=== PATIENT | female | born 1965 | race Caucasian/White ===

== ENCOUNTER 2024-02-04 16:37 | Inpatient (IN) | payer BC, OTHER ==
[2024-02-04 17:56] VITALS: BMI 18.0
[2024-02-04] MEDS ORDERED: BISMUTH SUBSALICYLATE 524 MG/30 ML PO PRN (18:51)
[2024-02-04] MEDS ORDERED: IBUPROFEN 400 MG TABLET (FP) PO PRN (18:51)
[2024-02-04] MEDS ORDERED: BENZONATATE 200 MG CAPSULE PO PRN (18:51)
[2024-02-04] MEDS ORDERED: BENZOCAINE/MENTHOL (CHLORASEPTIC ) LOZENGE MM PRN (18:51)
[2024-02-04] MEDS ORDERED: NALOXONE (NARCAN) HCL 4 MG/0.1 ML SPRAY NS PRN (18:51)
[2024-02-04] MEDS ORDERED: POLYETHYLENE GLYCOL (HEALTHYLAX) 3350 17 GM PACKET PO PRN (18:51)
[2024-02-04] MEDS ORDERED: NALOXONE (NYS OPIOID OVERDOSE PROGRAM) 4 MG/0.1 ML SPRAY NS PRN (18:51)
[2024-02-04] MEDS ORDERED: LOPERAMIDE HCL 2 MG CAPSULE PO PRN (18:51)
[2024-02-04] MEDS ORDERED: MAG HYDROX/AL HYDROX/SIMETH 30 ML UNIT-DOSE CUP PO PRN (18:51)
[2024-02-04] MEDS ORDERED: DICYCLOMINE HCL 10 MG CAPSULE PO PRN (18:51)
[2024-02-04] MEDS ORDERED: guaiFENesin 600 MG TABLET.ER (FP) PO PRN (18:51)
[2024-02-04] MEDS: MELATONIN 5 MG TABLETS PO SCH (22:58)
[2024-02-04] MEDS: GABAPENTIN 100 MG CAPSULE PO SCH (22:58)
[2024-02-04] MEDS: SULFAMETHOXAZOLE/TRIMETHOPRIM 800MG/160MG D.S. TABLET PO SCH (22:58)
[2024-02-04] MEDS: BUDESONIDE/FORMETEROL FUMARATE 80/4.5 mcg INHALER IH SCH (23:00)
[2024-02-04] MEDS: THIAMINE 100 MG TABLET PO SCH (23:01)
[2024-02-04] MEDS: METHOCARBAMOL 500 MG TABLET PO PRN (23:02)
[2024-02-04] MEDS: diazePAM 5 MG TABLET PO SCH (23:03)
[2024-02-04] MEDS: IBUPROFEN 600 MG TABLET (FP) PO PRN (23:03)
[2024-02-05] MEDS: PRENATAL VITAMINS W/ FOLIC ACID TABLET (FP) PO SCH (10:27)
[2024-02-05] MEDS: NICOTINE 14 MG/24 HOURS TOPICAL PATCH TD SCH (10:37)
[2024-02-05] MEDS ORDERED: methaDONE HCL 10 MG TABLET PO SCH (11:00)
[2024-02-05 11:25] LABS: HEMATOCRIT 26.9 % (32.4-45.2); HEMOGLOBIN 8.4 GM/dL (10.7-15.3); MCH 24.9 pg (25.7-33.7); MCHC 31.3 g/dl (32.0-36.0); MEAN CELL VOLUME 79.5 fl (80-96); MEAN PLT VOLUME 9.9 fl (7.5-11.1); PLATELET COUNT 215 10^3/uL (134-434); RBC 3.38 M/mm3 (3.60-5.2); RDW 15.8 % (11.6-15.6); WHITE BLOOD COUNT 4.6 K/mm3 (4.0-10.0)
[2024-02-05 11:29] LABS: CHLORIDE 104 mmol/L (98-107); POTASSIUM 4.1 mmol/L (3.5-5.1); SODIUM 140 mmol/L (136-145)
[2024-02-05 11:42] LABS: ALBUMIN 2.7 g/dl (3.4-5.0); CALCIUM 9.1 mg/dL (8.5-10.1)
[2024-02-05 11:43] LABS: ANION GAP 5 mmol/L (4-13); BLOOD UREA NITROGEN 12.6 mg/dL (7-18); CO2 31 mmol/L (21-32); GLUCOSE,RANDOM 95 mg/dL (74-106)
[2024-02-05 11:46] LABS: CREATININE 0.7 mg/dL (0.55-1.3); SGOT/AST 83 U/L (15-37)
[2024-02-05 11:47] LABS: TOT PROT 6.8 g/dl (6.4-8.2)
[2024-02-05 11:51] LABS: SGPT/ALT 57 U/L (13-61)
[2024-02-05 11:53] LABS: BILIRUBIN,TOTAL 0.2 mg/dL (0.2-1)
[2024-02-05 11:54] LABS: ALK PHOS 104 U/L (45-117)
[2024-02-05] MEDS: NICOTINE POLACRILEX 2 MG GUM BUC PRN (23:18)
[2024-02-06] MEDS: diazePAM 5 MG TABLET PO SCH (05:46)
[2024-02-06] MEDS: hydrOXYzine PAMOATE 25 MG CAPSULE (FP) PO PRN (10:59)
[2024-02-06] MEDS: PATIENT'S OWN MEDICATION (NON-FORMULARY) (Linaclotide 145 MCG Capsule) PO SCH (11:17)
[2024-02-06 12:20] LABS: BASO % 0.8 % (0-2.0); EOS % 8.3 % (0-4.5); HEMATOCRIT 31.8 % (32.4-45.2); HEMOGLOBIN 9.8 GM/dL (10.7-15.3); LYMPH % 25.7 % (8-40); MCH 24.2 pg (25.7-33.7); MCHC 30.9 g/dl (32.0-36.0); MEAN CELL VOLUME 78.4 fl (80-96); MEAN PLT VOLUME 10.2 fl (7.5-11.1); MONO % 7.7 % (3.8-10.2); NEUT % 57.5 % (42.8-82.8); PLATELET COUNT 278 10^3/uL (134-434); RBC 4.06 M/mm3 (3.60-5.2); RDW 16.2 % (11.6-15.6); WHITE BLOOD COUNT 5.1 K/mm3 (4.0-10.0)
[2024-02-06 12:29] LABS: POTASSIUM 4.5 mmol/L (3.5-5.1)
[2024-02-06 12:32] LABS: ALBUMIN 2.9 g/dl (3.4-5.0); BLOOD UREA NITROGEN 11.8 mg/dL (7-18); CALCIUM 9.2 mg/dL (8.5-10.1)
[2024-02-06 12:35] LABS: CREATININE 0.8 mg/dL (0.55-1.3)
[2024-02-06 12:37] LABS: BILIRUBIN,TOTAL 0.3 mg/dL (0.2-1); TOT PROT 7.7 g/dl (6.4-8.2)
[2024-02-06] MEDS: SENNOSIDES 8.8 MG/5 ML SYRUP PO SCH (13:30)
[2024-02-06] MEDS: GABAPENTIN 300 MG CAPSULE PO SCH (13:31)
[2024-02-06] MEDS: DOCUSATE SODIUM 100 MG CAPSULE (FP) PO SCH (22:33)
[2024-02-07] MEDS: diazePAM 5 MG TABLET PO SCH (06:15)
[2024-02-07] MEDS: hydrOXYzine PAMOATE 50 MG CAPSULE (FP) PO PRN (09:14)
[2024-02-07] MEDS: diazePAM 5 MG TABLET PO PRN (13:17)
[2024-02-08] MEDS: diazePAM 5 MG TABLET PO ONE (06:20)
[2024-02-08] MEDS: MAGNESIUM HYDROX 2400MG/30ML ORAL SUSPENSION 30 ML CUP PO PRN (21:42)
[2024-02-09] MEDS: ONDANSETRON *ODT* 4 MG TABLET SL PRN (03:54)
[2024-02-09] MEDS: ACETAMINOPHEN 325 MG TABLET (FP) PO PRN (09:26)
[2024-02-09] MEDS: SUVOREXANT 10 MG TABLET PO PRN (22:02)
[2024-02-10 06:06] VITALS: RESP 16
[2024-02-11 09:00] VITALS: BP 135/72; PULSE 83; TEMP 98.2
[2024-02-11] MEDS: methaDONE HCL 10 MG TABLET PO ONE (09:44)
[2024-02-11] MEDS ORDERED: METHOCARBAMOL 500 MG TABLET PO PRN (10:43)
== END 2024-02-11 12:11 | disposition other institution (70) | DRG 773 ==
LOC: YASAS 16:37 → Y3N 19:37
PROVIDERS: ADMIT Allergy & Immunology; ATTEND Surgery
PROC: HZ2ZZZZ Detoxification Services for Substance Abuse Treatment (ICD-10-PCS; principal; 2024-02-04)
DX: F10.230 Alcohol dependence with withdrawal, uncomplicated (principal); F11.20 Opioid dependence, uncomplicated; F13.20 Sedative, hypnotic or anxiolytic dependence, uncomplicated; F14.20 Cocaine dependence, uncomplicated; F17.210 Nicotine dependence, cigarettes, uncomplicated; F19.282 Other psychoactive substance dependence with psychoactive substance-induced sleep disorder; F19.24 Other psychoactive substance dependence with psychoactive substance-induced mood disorder; F41.9 Anxiety disorder, unspecified; I10 Essential (primary) hypertension; J44.9 Chronic obstructive pulmonary disease, unspecified; Z22.322 Carrier or suspected carrier of Methicillin resistant Staphylococcus aureus; Z62.810 Personal history of physical and sexual abuse in childhood; Z91.410 Personal history of adult physical and sexual abuse; Z59.01 Sheltered homelessness
CPT/HCPCS: 36415; 80053; 80305; 80307; 81025; 85025; 85027; 86780; 87070; 87186; 87205; 87811; 93005; 93010; Q0162

== ENCOUNTER 2024-02-11 12:39 | Inpatient (IN) | payer OTHER ==
[2024-02-11] MEDS ORDERED: guaiFENesin 600 MG TABLET.ER (FP) PO PRN (13:30)
[2024-02-11] MEDS ORDERED: BENZONATATE 200 MG CAPSULE PO PRN (13:30)
[2024-02-11] MEDS ORDERED: POLYETHYLENE GLYCOL (HEALTHYLAX) 3350 17 GM PACKET PO PRN (13:30)
[2024-02-11] MEDS ORDERED: BENZOCAINE/MENTHOL (CHLORASEPTIC ) LOZENGE MM PRN (13:30)
[2024-02-11] MEDS ORDERED: LOPERAMIDE HCL 2 MG CAPSULE PO PRN (13:30)
[2024-02-11] MEDS: hydrOXYzine PAMOATE 25 MG CAPSULE (FP) PO PRN (14:00)
[2024-02-11] MEDS: METHOCARBAMOL 500 MG TABLET PO PRN (14:00)
[2024-02-11] MEDS: GABAPENTIN 300 MG CAPSULE PO ONE (15:19)
[2024-02-11] MEDS: GABAPENTIN 300 MG CAPSULE PO SCH (21:22)
[2024-02-11] MEDS: THIAMINE 100 MG TABLET PO SCH (21:22)
[2024-02-11] MEDS: MELATONIN 5 MG TABLETS PO SCH (21:22)
[2024-02-11] MEDS: cloNIDine HCL 0.1 MG TABLET PO SCH (21:22)
[2024-02-11] MEDS: SULFAMETHOXAZOLE/TRIMETHOPRIM 800MG/160MG D.S. TABLET PO SCH (21:22)
[2024-02-11] MEDS: IBUPROFEN 600 MG TABLET (FP) PO PRN (22:26)
[2024-02-11] MEDS: SUVOREXANT 10 MG TABLET PO ONE (22:26)
[2024-02-11] MEDS: NICOTINE POLACRILEX 4 MG GUM BUC PRN (22:27)
[2024-02-12] MEDS: NICOTINE 14 MG/24 HOURS TOPICAL PATCH TD SCH (05:30)
[2024-02-12] MEDS: PRENATAL VITAMINS W/ FOLIC ACID TABLET (FP) PO SCH (05:30)
[2024-02-12] MEDS ORDERED: methaDONE HCL 10 MG TABLET PO SCH (06:00)
[2024-02-12] MEDS: ACETAMINOPHEN 325 MG TABLET (FP) PO PRN (13:26)
[2024-02-12 13:29] LABS: HIV INTERPRETATION NEGATIVE (NEGATIVE)
[2024-02-12] MEDS ORDERED: ONDANSETRON 4 MG/2 ML VIAL IVPUSH PRN (13:33)
[2024-02-12] MEDS: MINERAL OIL ENEMA 133 ML ENEMA RC ONE (18:10)
[2024-02-12] MEDS: hydrOXYzine PAMOATE 25 MG CAPSULE (FP) PO PRN (18:13)
[2024-02-12] MEDS: SUVOREXANT 10 MG TABLET PO PRN (21:15)
[2024-02-13] MEDS ORDERED: methaDONE HCL 40 MG DISPERSABLE TABLET PO SCH (11:22)
[2024-02-13] MEDS: methaDONE HCL 10 MG TABLET PO ONE (12:07)
[2024-02-13] MEDS: MAGNESIUM HYDROX 2400MG/30ML ORAL SUSPENSION 30 ML CUP PO PRN (21:47)
[2024-02-14] MEDS: BACITRACIN 0.9 GM PACKET TP SCH (10:42)
[2024-02-14] MEDS: NYSTATIN POWDER 100,000 UNITS/GM - 15 GM TOPICAL POWDER TP SCH (15:48)
[2024-02-14] MEDS: MUPIROCIN CA 2% TOPICAL CREAM 15 GM TUBE TP SCH (21:35)
[2024-02-14] MEDS: IBUPROFEN 400 MG TABLET (FP) PO PRN (21:39)
[2024-02-15] MEDS: MAG HYDROX/AL HYDROX/SIMETH 30 ML UNIT-DOSE CUP PO PRN (17:28)
[2024-02-15] MEDS: hydrOXYzine PAMOATE 25 MG CAPSULE (FP) PO PRN (21:12)
[2024-02-16] MEDS: SUVOREXANT 10 MG TABLET PO PRN (21:48)
[2024-02-18] MEDS: FLUCONAZOLE 150 MG TABLET PO ONE (19:59)
[2024-02-18] MEDS: BACLOFEN 10 MG TABLET (FP) PO SCH (21:14)
[2024-02-18] MEDS: LIDOCAINE PATCH REMOVAL MC SCH (21:15)
[2024-02-19] MEDS: LIDOCAINE 5% TOPICAL PATCH TP SCH (10:46)
[2024-02-19 13:16] LABS: BASO % 1.6 % (0-2.0); EOS % 10.2 % (0-4.5); HEMATOCRIT 32.5 % (32.4-45.2); HEMOGLOBIN 10.2 GM/dL (10.7-15.3); LYMPH % 18.5 % (8-40); MCH 25.4 pg (25.7-33.7); MCHC 31.3 g/dl (32.0-36.0); MEAN CELL VOLUME 81.3 fl (80-96); MEAN PLT VOLUME 10.1 fl (7.5-11.1); MONO % 7.2 % (3.8-10.2); NEUT % 62.5 % (42.8-82.8); PLATELET COUNT 246 10^3/uL (134-434); RDW 19.3 % (11.6-15.6); WHITE BLOOD COUNT 4.6 K/mm3 (4.0-10.0)
[2024-02-19 13:20] LABS: INR 0.91 (0.83-1.09); PROTHROMBIN TIME (PATIENT) 10.3 SEC (9.7-13.0)
[2024-02-19 14:10] LABS: POTASSIUM 4.6 mmol/L (3.5-5.1)
[2024-02-19 14:14] LABS: CALCIUM 9.8 mg/dL (8.5-10.1)
[2024-02-19 14:15] LABS: BLOOD UREA NITROGEN 20.8 mg/dL (7-18); MAGNESIUM 2.2 mg/dL (1.8-2.4)
[2024-02-19 14:19] LABS: BILIRUBIN,TOTAL 0.3 mg/dL (0.2-1); TOT PROT 8.8 g/dl (6.4-8.2)
[2024-02-19 14:24] LABS: ALBUMIN 3.5 g/dl (3.4-5.0)
[2024-02-21] MEDS: ONDANSETRON *ODT* 4 MG TABLET SL PRN (09:06)
[2024-02-23] MEDS: SUVOREXANT 10 MG TABLET PO PRN (21:42)
[2024-02-24] MEDS: GABAPENTIN 400 MG CAPSULE PO SCH (13:42)
[2024-02-24] MEDS: BACLOFEN 10 MG TABLET (FP) PO SCH (21:42)
[2024-02-25] MEDS: NICOTINE POLACRILEX 4 MG GUM BUC SCH (15:01)
[2024-02-26] MEDS: NICOTINE POLACRILEX 4 MG GUM BUC PRN (11:36)
[2024-02-27] MEDS: MAGNESIUM HYDROX 2400MG/30ML ORAL SUSPENSION 30 ML CUP PO SCH (16:33)
[2024-02-27] MEDS: NICOTINE POLACRILEX 2 MG LOZENGE BC PRN (18:54)
[2024-02-27] MEDS: METHYL SALICYLATE/MENTHOL 30 GM TUBE TP SCH (21:51)
[2024-02-29] MEDS: NICOTINE POLACRILEX 2 MG GUM BC PRN (11:15)
[2024-02-29] MEDS: SUVOREXANT 10 MG TABLET PO PRN (21:09)
[2024-03-02] MEDS: PHENYLEPHRINE HCL/COCOA BUTTER 1 EACH SUPP.RECT RC ONE (15:01)
[2024-03-03 09:24] VITALS: BP 143/65; PULSE 86; RESP 18; TEMP 97.1
[2024-03-03] MEDS: NALOXONE (NYS OPIOID OVERDOSE PROGRAM) 4 MG/0.1 ML SPRAY NS SCH (09:53)
== END 2024-03-03 10:05 | disposition home or self-care (01) | DRG 772 ==
LOC: YASAS 12:39 → Y3NR 12:41 → Y5N 02-12 11:54
PROVIDERS: ADMIT Psychiatry & Neurology Pain Medicine; ATTEND Psychiatry & Neurology Pain Medicine
PROC: HZ42ZZZ Group Counseling for Substance Abuse Treatment, Cognitive-Behavioral (ICD-10-PCS; principal; 2024-02-11)
DX: F11.20 Opioid dependence, uncomplicated (principal); F13.20 Sedative, hypnotic or anxiolytic dependence, uncomplicated; F10.20 Alcohol dependence, uncomplicated; F14.20 Cocaine dependence, uncomplicated; F12.20 Cannabis dependence, uncomplicated; F17.210 Nicotine dependence, cigarettes, uncomplicated; F19.280 Other psychoactive substance dependence with psychoactive substance-induced anxiety disorder; F19.282 Other psychoactive substance dependence with psychoactive substance-induced sleep disorder; F19.24 Other psychoactive substance dependence with psychoactive substance-induced mood disorder; F41.9 Anxiety disorder, unspecified; F32.A Depression, unspecified; D50.9 Iron deficiency anemia, unspecified; E78.2 Mixed hyperlipidemia; I10 Essential (primary) hypertension; J41.8 Mixed simple and mucopurulent chronic bronchitis; R74.01 Elevation of levels of liver transaminase levels; B37.32 Chronic candidiasis of vulva and vagina; Z87.19 Personal history of other diseases of the digestive system; Z59.01 Sheltered homelessness
CPT/HCPCS: 36415; 80053; 80305; 82652; 83735; 85025; 85610; 86803; 87389; 87522; J0475; Q0162